=== PATIENT | female | born 2000 | race Two or more races ===

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

== ENCOUNTER 2023-11-16 14:15 | Inpatient (IN) | payer OTHER ==
[~2023-11-16] VITALS: Ht 165.1 cm; Wt 87.5 kg
[~2023-11-16 14:15] MED LIST changes: +INTESTINEX680 M1 PO; +PRENATABS RX T1 EACH PO; +ZANTAC150 MG PO; +ZITHROMAX200 MG PO
[2023-11-22] MEDS ORDERED: RINGERS SOLUTION,LACTATED 1,000 ML IV SCH (19:15)
[2023-11-22 19:38] LABS: HEMATOCRIT 34.7 % (36.0-45.00); HEMOGLOBIN 11.8 g/dL (12.0-15.00); MEAN CELL VOLUME 85.7 fL (80.00-100.00); MEAN CORPUSCULAR HGB CONC 33.9 g/dl (32.0-36.0); PLATELET COUNT 295 K/uL (150-450); RED BLOOD COUNT 4.05 M/uL (4.00-6.00); RED CELL DISTRIBUTION WIDTH 14.6 % (11.5-14.5)
[2023-11-22 20:07] LABS: INR < 0.93; PARTIAL THROMBOPLASTIN TIME 26.2 SECONDS (22.0-34.0); PROTHROMBIN TIME 9.5 SECONDS (9.0-11.5)
[2023-11-22 20:12] LABS: ALBUMIN 2.9 gm/dL (3.4-5.0); BILIRUBIN TOTAL 0.18 mg/dL (0.3-1.2); CALCIUM 9.3 mg/dL (8.5-10.1); CREATININE SERUM 0.88 mg/dL (0.55-1.02); GFR 81.92; GLOBULINA 4.1 G/DL (2.4-3.5); POTASSIUM 4.16 mEq/L (3.5-5.1)
[2023-11-22] MEDS ORDERED: FAMOTIDINE/PF 20 MG/2 ML VIAL IV PUSH PRN (20:15)
[2023-11-22] MEDS ORDERED: FAMOTIDINE/PF 20 MG/2 ML VIAL ONE (22:03)
[2023-11-23] MEDS ORDERED: MORPHINE SULFATE 4 MG/ML VIAL IV ONE (09:45)
[2023-11-23] MEDS ORDERED: PROMETHAZINE HCL 25 MG/ML AMPUL ONE (13:35)
[2023-11-23] MEDS ORDERED: PROMETHAZINE HCL 25 MG/ML AMPUL IV NR (13:45)
[2023-11-23] MEDS ORDERED: MORPHINE SULFATE 4 MG/ML CARTRIDGE IV PRN (13:45)
[2023-11-24] MEDS ORDERED: OXYTOCIN 500 ML IV ONE (05:45)
[2023-11-24] MEDS ORDERED: ERYTHROMYCIN BASE 1 GM TUBE OP ONE ×2 (09:07→10:45)
[2023-11-24] MEDS ORDERED: OXYTOCIN 20 UNITS/1000ML RL PIGGYBAG IV ONE (09:07)
[2023-11-24] MEDS ORDERED: CHLORHEXIDINE GLUCONATE 120 ML BOTTLE TOP ONE ×2 (09:07→10:45)
[2023-11-24] MEDS ORDERED: LIDOCAINE HCL 1% 10ML VIAL ONE (09:07)
[2023-11-24] MEDS ORDERED: LIDOCAINE HCL 1% 10ML VIAL PERCUT ONE (10:45)
[2023-11-24] MEDS ORDERED: ERYTHROMYCIN BASE 1 GM TUBE OP SCH (10:45)
[2023-11-24] MEDS ORDERED: CHLORHEXIDINE GLUCONATE 120 ML BOTTLE TP SCH (10:45)
[2023-11-24] MEDS ORDERED: OXYTOCIN 1,000 ML IV SCH ×2 (10:45)
[2023-11-24] MEDS ORDERED: IBUprofen 400 MG TABLET PO PRN (10:45)
[2023-11-24] MEDS ORDERED: BENZOCAINE/MENTHOL 90 ML BOTTLE TOP SCH (18:15)
[2023-11-25 05:20] LABS: HEMATOCRIT 29.3 % (36.0-45.00); HEMOGLOBIN 9.9 g/dL (12.0-15.00); MEAN CORPUSCULAR HGB CONC 33.8 g/dl (32.0-36.0); PLATELET COUNT 222 K/uL (150-450); RED BLOOD COUNT 3.41 M/uL (4.00-6.00); RED CELL DISTRIBUTION WIDTH 14.8 % (11.5-14.5)
[2023-11-25] MEDS ORDERED: OxyCODONE HCL/APAP UD (PERCOCET) PO PRN (08:15)
[2023-11-25] MEDS ORDERED: IRON/V.C/V.B12/FOLIC A/VIT. E 1 CAPL CAPLET PO SCH (09:00)
== END 2023-11-26 12:38 | disposition home or self-care (01) | DRG 807 ==
LOC: OB/GYN 11-22 18:21 → LDR 11-22 18:21 → OB/GYN 11-24 11:21
PROVIDERS: Obstetrics & Gynecology; ADMIT Obstetrics & Gynecology Maternal & Fetal Medicine; ATTEND Obstetrics & Gynecology Maternal & Fetal Medicine
PROC: 4A1HXCZ Monitoring of Products of Conception, Cardiac Rate, External Approach (ICD-10-PCS; 2023-11-22)
PROC: 10E0XZZ Delivery of Products of Conception, External Approach (ICD-10-PCS; principal; 2023-11-24)
PROC: 0HQ9XZZ Repair Perineum Skin, External Approach (ICD-10-PCS; 2023-11-24)
PROC: 3E033VJ Introduction of Other Hormone into Peripheral Vein, Percutaneous Approach (ICD-10-PCS; 2023-11-24)
DX: O70.0 First degree perineal laceration during delivery (principal); Z37.0 Single live birth; Z3A.39 39 weeks gestation of pregnancy; Z20.822 Contact with and (suspected) exposure to COVID-19

== ENCOUNTER 2024-03-07 18:32 | Emergency (ER) | payer OTHER ==
[~2024-03-07] VITALS: Ht 165.1 cm; Wt 68.0 kg
[2024-03-07 18:48] VITALS: BP 103/68; O2SAT 100
[2024-03-07] MEDS ORDERED: ONDANSETRON HCL 2 MG/ML VIAL IV ONE (19:45)
[2024-03-07 20:56] LABS: HEMATOCRIT 37.3 % (36.0-45.00); HEMOGLOBIN 12.7 g/dL (12.0-15.00); MEAN CELL VOLUME 85.1 fL (80.00-100.00); MEAN CORPUSCULAR HEMOGLOBIN 28.9 pg (27.00-32.0); PLATELET COUNT 307 K/uL (150-450); RED BLOOD COUNT 4.39 M/uL (4.00-6.00); RED CELL DISTRIBUTION WIDTH 13.6 % (11.5-14.5)
[2024-03-07] MEDS ORDERED: QC TUSSIN DM L118 ML PO (22:03)
[2024-03-07] MEDS ORDERED: ONDANSETRON HCL4 MG PO (22:03)
[2024-03-07] MEDS ORDERED: KETOROLAC TROMETHAMINE 10 MG TABLET PO ONE (22:15)
[2024-03-07] MEDS ORDERED: KETOROLAC TROMETHAMINE 60 MG VIAL IM ONE (22:15)
== END 2024-03-07 22:18 | disposition home or self-care (01) ==
LOC: ER 18:34
PROVIDERS: Nurse Practitioner Family
DX: B34.9 Viral infection, unspecified (principal); N93.9 Abnormal uterine and vaginal bleeding, unspecified; Z20.822 Contact with and (suspected) exposure to COVID-19

== ENCOUNTER 2024-06-18 13:11 | Emergency (ER) | payer OTHER ==
[~2024-06-18] VITALS: Ht 165.1 cm; Wt 63.5 kg
[~2024-06-18 13:11] MED LIST changes: +ONDANSETRON HCL4 MG PO; +QC TUSSIN DM L118 ML PO
[2024-06-18] MEDS ORDERED: KETOROLAC TROMETHAMINE 60 MG VIAL IM ONE (15:00)
[2024-06-18] MEDS ORDERED: CEFTRIAXONE SODIUM 1,000 MG VIAL IM ONE (15:00)
[2024-06-18 16:38] LABS: PH,URINE 6.5 (5.0-8.0); URINE APPEARANCE Cloudy; URINE BILIRRUBIN Negative (NEGATIVE); URINE BLOOD Negative; URINE COLOR Yellow; URINE GLUCOSE Negative (NEGATIVE); URINE KETONE Negative (NEGATIVE); URINE LEUKOCYTE Moderate; URINE NITRATE Negative; URINE PROTEIN Trace (NEGATIVE); URINE UROBILINOGEN 0.2 E.U./dl
[2024-06-18 16:42] LABS: URINE BACTERIA 4515.3 uL (0.0-1933); URINE EPITHELIAL CELLS 52.2 uL (0.0-38.8); URINE RBC 7.6 uL (0.0-20.8); URINE WBC 1218.2 uL (0.0-23.2)
[2024-06-18 16:43] LABS: HEMATOCRIT 39.7 % (36.0-45.00); HEMOGLOBIN 13.5 g/dL (12.0-15.00); MEAN CORPUSCULAR HEMOGLOBIN 29.6 pg (27.00-32.0); MEAN CORPUSCULAR HGB CONC 34.1 g/dl (32.0-36.0); PLATELET COUNT 330 K/uL (150-450); RED BLOOD COUNT 4.56 M/uL (4.00-6.00); RED CELL DISTRIBUTION WIDTH 14.1 % (11.5-14.5)
[2024-06-18 16:58] LABS: URINE CAST 0.14 uL (0.0-1.40); URINE YEAST FEW /hpf
[2024-06-18 17:17] LABS: ALBUMIN 4.4 gm/dL (3.4-5.0); ALKALINE PHOSPHATASE 85 U/L (50-136); ALT/SGPT 19 U/L (12-78); ANION GAP 8 (10.0-20.0); AST/SGOT 14 U/L (15-37); BILIRUBIN TOTAL 0.35 mg/dL (0.3-1.2); BLOOD UREA NITROGEN 13 mg/dL (7-18); BUN CREA RATIO 18 (7.0-25.0); CALCIUM 9.5 mg/dL (8.5-10.1); CARBON DIOXIDE 28 mEq/L (21-32); CHLORIDE 106 mmol/L (98-107); CREATININE SERUM 0.71 mg/dL (0.55-1.02); GFR 103.91; GLOBULINA 4.2 G/DL (2.4-3.5); GLUCOSE FASTING 77 mg/dL (65-100); OSMOLALITY SERUM 275 MOSM/KG (275-295); POTASSIUM 3.91 mEq/L (3.5-5.1); SODIUM 138 mmol/L (136-145); TOTAL PROTEIN 8.6 gm/dL (6.4-8.2)
[2024-06-18 17:31] LABS: HCG QUANTITATIVE < 1 mUI/mL (1-3)
[2024-06-18] MEDS ORDERED: MACROBID 100 M100 MG PO (17:43)
== END 2024-06-18 18:07 | disposition home or self-care (01) ==
LOC: ER 13:13
PROVIDERS: General Practice
DX: N39.0 Urinary tract infection, site not specified (principal)